=== PATIENT | male | born 1950 | race Caucasian/White ===

== ENCOUNTER 2017-11-23 07:44 | Day surgery (SDC) | payer MEDICARE, BC ==
[2017-11-23 09:36] VITALS: TEMP 97.2
[2017-11-23 09:52] VITALS: RESP 20
[2017-11-23 10:01] VITALS: BP 157/84; PULSE 70; O2SAT 93
[2017-11-23] MEDS ORDERED: PROPOFOL 500 MG/50 ML EMU IV ONE (11:52)
[2017-11-23] MEDS ORDERED: LIDOCAINE HCL 1% MPF 30 SOL ONE (11:52)
== END 2017-11-23 10:07 | disposition home or self-care (01) | DRG 951 ==
LOC: SURG 07:44
PROVIDERS: ATTEND Internal Medicine Gastroenterology
DX: Z12.11 Encounter for screening for malignant neoplasm of colon (principal); K57.32 Diverticulitis of large intestine without perforation or abscess without bleeding; E11.9 Type 2 diabetes mellitus without complications; Z86.010 Personal history of colon polyps; K64.8 Other hemorrhoids; K63.5 Polyp of colon
CPT/HCPCS: J2001; J2704